=== PATIENT | male | born 1980 | race African-American/Black ===

== ENCOUNTER 2017-04-23 17:48 | Emergency (ER) | payer SELFPAY ==
--- NOTE | 2017-04-23 17:51 | PDOC ---
Rapid Medical Evaluation Chief Complaint: Pain Time Seen by Provider: 04/23/17 17:49 Medical Evaluation: Allergies Allergy/AdvReac Type Severity Reaction Status Date / Time No Known Allergies Allergy Verified 04/23/17 17:49 12 17:50 I have performed a brief in-person evaluation of this patient. The patient presents with a chief complaint of: Constant lower abd pain since last night. No other symptoms. No pmhx Pertinent physical exam findings: Stable and well sánchez w/ ttp to lower mid abd I have ordered the following:cbc/chem/ua The patient will proceed to the ED for further evaluation. 04/23/17 17:51
[2017-04-23 17:52] VITALS: BP 148/93; PULSE 85; TEMP 98.3; BMI 24.4
[2017-04-23 18:06] LABS: BASOPHIL 0.6 % (0-2.0); EOSINOPHIL 1.2 % (0-4.5); MCH 31.1 pg (25.7-33.7); MCHC 33.5 g/dl (32.0-35.9); MEAN CELL VOLUME 92.6 fl (80-96); PLATELET COUNT 182 K/MM3 (134-434); RDW 13.6 % (11.9-15.9); WHITE BLOOD COUNT 11.6 K/mm3 (4.0-10.0)
--- NOTE | 2017-04-23 18:21 | PDOC ---
History of Present Illness - General Chief Complaint: Pain Stated Complaint: ABDOMINAL PAIN Time Seen by Provider: 04/23/17 17:49 - History of Present Illness Initial Comments: 04/23/17 18:20 36 yo M with no significant pmh who presents with urethral discharge. Patient states that one week ago developed dysruia, and white, milky urethral discharge. Also endorses suprpaubic discomfort/pressure. Denies N/V, fevers/ chills, hematuria, flank pain, genital lesions,testicular pain/swelling, back pain, dyspareunia, inguinal swelling. Reports h/o gonorrhea in past. Currently sexually active with 4 female partners during this year of unknown STI status. Denies IV drug use, h/o HIV. Occasional condom use. Past History - Past Medical History Allergies/Adverse Reactions: Allergies Allergy/AdvReac Type Severity Reaction Status Date / Time No Known Allergies Allergy Verified 04/23/17 17:49 Home Medications: Ambulatory Orders Ibuprofen [Motrin -] 600 mg PO TID #21 tablet 01/26/15 Oxycodone HCl/Acetaminophen [Percocet 5/325 -] 1 tab PO Q6H #10 tablet 01/26/15 COPD: No - Suicide/Smoking/Psychosocial Hx Smoking History: Never smoked Have you smoked in the past 12 months: No Information on smoking cessation initiated: No Hx Alcohol Use: No Drug/Substance Use Hx: No Substance Use Type: None Review of Systems - Review of Systems Comments:: 04/23/17 18:20 GENERAL/CONSTITUTIONAL: No fever or chills. No weakness. HEAD, EYES, EARS, NOSE AND THROAT: No change in vision. No ear pain or discharge. No sore throat.- CARDIOVASCULAR: No chest pain or shortness of breath RESPIRATORY: No cough, wheezing, or hemoptysis. GASTROINTESTINAL: No nausea, vomiting, diarrhea or constipation. GENITOURINARY: No dysuria, frequency, or change in urination. MUSCULOSKELETAL: No joint or muscle swelling or pain. No neck or back pain. SKIN: No rash NEUROLOGIC: No headache, vertigo, loss of consciousness, or change in strength/ sensation. ENDOCRINE: No increased thirst. No abnormal weight change HEMATOLOGIC/LYMPHATIC: No anemia, easy bleeding, or history of blood clots. ALLERGIC/IMMUNOLOGIC: No hives or skin allergy. *Physical Exam - Vital Signs Last Vital Signs Temp Pulse Resp BP Pulse Ox 98.3 F 85 18 148/93 100 04/23/17 17:49 04/23/17 17:49 04/23/17 17:49 04/23/17 17:49 04/23/17 17:49 - Physical Exam Comments: 04/23/17 18:20 GENERAL: Awake, alert, and fully oriented, in no acute distress HEAD: No signs of trauma, normocephalic, atraumatic EYES: PERRLA, EOMI, sclera anicteric, conjunctiva clear ENT: Auricles normal inspection, hearing grossly normal, nares patent, oropharynx clear without exudates. Moist mucosa NECK: Normal ROM, supple, no lymphadenopathy, JVD, or masses LUNGS: No distress, speaks full sentences, clear to auscultation bilaterally HEART: Regular rate and rhythm, normal S1 and S2, no murmurs, rubs or gallops, peripheral pulses normal and equal bilaterally. ABDOMEN: Soft, nontender, normoactive bowel sounds. No guarding, no rebound. No masses. Neg CVA ttp. : External genitalia normal appearing with absent lesions,erythema, swelling, or discharge. Absent testciular or epiddydmal ttp. Absent inguinal lymphadenopathy. EXTREMITIES : Normal inspection, Normal range of motion, no edema. No clubbing or cyanosis. SKIN: Warm, Dry, normal turgor, no rashes or lesions noted. ED Treatment Course - LABORATORY CBC & Chemistry Diagram: 04/23/17 18:00 04/23/17 18:00 - ADDITIONAL ORDERS Additional order review: 04/23/17 18:00 RBC 4.29 MCV 92.6 MCHC 33.5 RDW 13.6 MPV 9.0 Neutrophils % 64.0 Lymphocytes % 28.1 Monocytes % 6.1 Eosinophils % 1.2 Basophils % 0.6 Medical Decision Making - Medical Decision Making 04/23/17 19:37 36 yo M with no significant pmh who presents with one week of intermittent dysruia, and white, milky urethral discharge. Also endorses suprpaubic discomfort/pressure. Denies N/V, fevers/chills, hematuria, flank pain, genital lesions,testicular pain/swelling, back pain, dyspareunia, inguinal swelling. Hemodynamically stable. Abdominal exam benign. External genitalia normal appearing with absent lesions,erythema, swelling, or discharge. Absent testciular or epiddydmal ttp. Absent inguinal lymphadenopathy. Reports h/o gonorrhea in past. Currently sexually active with 4 female partners during this year of unknown STI status. Denies IV drug use, h/o HIV. Occasional condom use. Patient describes symptoms consistent with gonorrhea vs. cystitis/urethritis. ED Course: CMP, Lipase: Unremarkable WBC: 11.6 04/23/17 19:59 Ceftriaxone IM 250 mg, Zithromax 1000 mg 04/23/17 21:04 UA: Neg Patient stable and ready for d/c with return precautions. *DC/Admit/Observation/Transfer Diagnosis at time of Disposition: Gonorrhea - Discharge Dispostion Disposition: HOME Condition at time of disposition: Stable Admit: No - Referrals - Patient Instructions Printed Discharge Instructions: DI for Gonorrhea Additional Instructions: Please return to the emergency department with any new or worsening symptoms or concerns. - Post Discharge Activity - Attestations Physician Attestion: 04/23/17 20:24 I attest to the documentation provided in this note.
[2017-04-23 18:37] LABS: ALBUMIN 3.8 g/dl (3.4-5.0); ANION GAP 7 (8-16); BILIRUBIN,TOTAL 0.4 mg/dL (0.2-1.0); CALCIUM 8.7 mg/dL (8.5-10.1); CO2 26 mmol/L (21-32); CREATININE 1.1 mg/dL (0.7-1.3); GLUCOSE,RANDOM 100 mg/dL (74-106); SGOT/AST 22 U/L (15-37); SGPT/ALT 40 U/L (12-78); TOT PROT 7.6 g/dl (6.4-8.2)
[2017-04-23 18:38] LABS: ALK PHOS 91 U/L (45-117)
[2017-04-23] MEDS ORDERED: AZITHROMYCIN 1 GM PACKET PO ONE (20:00)
[2017-04-23] MEDS ORDERED: AZITHROMYCIN 500 MG TABLET ONE (20:12)
[2017-04-23 20:14] LABS: URINE APPEARANCE CLEAR; URINE BILIRUBIN NEGATIVE (NEGATIVE); URINE BLOOD NEGATIVE (NEGATIVE); URINE COLOR LTYELLOW; URINE GLUCOSE (UA) NEGATIVE (NEGATIVE); URINE KETONE NEGATIVE (NEGATIVE); URINE NITRITE NEGATIVE (NEGATIVE); URINE PROTEIN NEGATIVE (NEGATIVE); URINE UROBILINOGEN NEGATIVE mg/dL (0.2-1.0)
[2017-04-23 22:19] LABS: HIV 1 & 2 AB NEGATIVE; HIV 1 AGp24 NEGATIVE
[2017-04-23 22:40] LABS: URINE LEUK ESTERASE Negative (NEGATIVE)
== END 2017-04-23 21:03 | disposition home or self-care (01) ==
LOC: JER 17:48
DX: A54.9 Gonococcal infection, unspecified (principal)
CPT/HCPCS: 36415; 80053; 81003; 83690; 85025; 87389; 99281-25